=== PATIENT | female | born 1965 | race Hispanic/Latino ===

== ENCOUNTER → 2023-08-29 | Outpatient (CLI) | payer OTHER ==
[~2023-08-29] MED LIST: ASCO1CAP5 PO; CHOL100044 PO; NIAC500T22 PO; SIMV-43 PO
== END | disposition home or self-care (01) ==
LOC: RAH 14:21
PROVIDERS: ATTEND Internal Medicine
DX: Z13.6 Encounter for screening for cardiovascular disorders (principal)
CPT/HCPCS: 75571